=== PATIENT | female | born 1970 | race African-American/Black ===

== ENCOUNTER 2017-05-20 08:50 | Emergency (ER) | payer MEDICARE, OTHER ==
[~2017-05-20] VITALS: Ht 157.5 cm; Wt 98.5 kg
[~2017-05-20 08:50] MED LIST: CIPR500T4 PO; DOXY100T20 PO; HYDR-3498 PO; IBUP-1542 PO; METR500T PO
[2017-05-20 08:53] VITALS: Ht 157.5 cm; Wt 98.5 kg
[2017-05-20 10:03] LABS: ABNORMAL IP MESSAGE 1; BASOPHILS % 0.5 % (0.0-2.0); EOSINOPHILS # 0.3 10^3/ul (0.0-0.5); EOSINOPHILS % 4.7 % (0.0-7.0); HEMATOCRIT 28.3 % (37.0-47.0); HEMOGLOBIN 7.3 g/dl (12.0-16.0); LYMPHOCYTES # 2.1 10^3/ul (0.8-2.9); LYMPHOCYTES % 33.4 % (15.0-51.0); MEAN CORPUSCULAR HEMOGLOBIN 16.3 pg (29.0-33.0); MEAN CORPUSCULAR HGB CONC 25.8 g/dl (32.0-37.0); MEAN CORPUSCULAR VOLUME 63.3 fl (82.0-101.0); MONOCYTE # 0.7 10^3/ul (0.3-0.9); MONOCYTES % 10.6 % (0.0-11.0); NEUTROPHIL # 3.1 10^3/ul (1.6-7.5); NEUTROPHILS % 50.6 % (39.0-77.0); PLATELET COUNT 287 10^3/UL (140-415); RED BLOOD COUNT 4.47 10^6/ul (4.20-5.40); RED CELL DISTRIBUTION WIDTH 22.1 % (11.5-14.5); WHITE BLOOD COUNT 6.1 10^3/ul (4.8-10.8)
[2017-05-20 10:04] LABS: POSITIVE DIFF @See below
--- NOTE | 2017-05-20 10:07 | RADRPT ---
PROCEDURE: XR Chest. CLINICAL INDICATION: Chest pain. TECHNIQUE: Single frontal view. COMPARISON: None. FINDINGS: The lungs are clear. The heart size is normal. There is no pleural effusion. There is no pneumothorax. IMPRESSION: 1. Normal chest radiograph. RPTAT: QQ .Gavino Rodriguez MD, Date Time Electronically viewed and signed by .Gavino Rodriguez MD, on 05/20/2017 10:06 .R/
[2017-05-20 10:19] LABS: URINE BLOOD (Dip) POC Trace-intact (NEGATIVE)
[2017-05-20 10:24] LABS: ALBUMIN 3.9 g/dl (3.3-4.9); ALBUMIN/GLOBULIN RATIO 1.11; BILIRUBIN,INDIRECT 0.3 mg/dl (0-1.1); BILIRUBIN,TOTAL 0.3 mg/dl (0.2-1.3); CALCIUM 9.2 mg/dl (8.4-10.2); CREATININE 0.73 mg/dl (0.44-1.00); POTASSIUM 3.7 mmol/L (3.5-5.1); TOTAL PROTEIN 7.4 g/dl (6.1-8.1)
[2017-05-20] MEDS ORDERED: FER325 PO (10:54)
[2017-05-20] MEDS ORDERED: DOCU-144 PO (10:54)
[2017-05-20] MEDS ORDERED: FERROUS SULFATE (EC) 325 MG TAB PO ONE (11:00)
--- NOTE | 2017-05-20 12:58 | ERD ---
ER Documentation Chief Complaint Date/Time DATE: 05/20/17 TIME: 12:54 Chief Complaint FEELING TIRED, STRESS WANTS TO KNOW IF HER IRON IS LOW HPI 46-year-old female patient with a past medical history of fibroids presents to the ED complaining of feeling tired and wants her blood work tests. States that she wants to check for her possible anemia. States that she had dyspnea on exertion 2 days ago when she walked 20 steps. Denies any current chest pain. Denies any wheezing, abdominal pain, nausea, vomiting, dizziness, weakness, numbness or tingling. States that her last menses was on May. ROS All systems reviewed and are negative except as per history of present illness. Medications Home Meds Active Scripts Docusate Sodium* (Colace*) 100 Mg Capsule, 100 MG PO TID, #30 CAP Prov:MENDEZ ZAMORANO PA-C 05/20/17 Ferrous Sulfate* (Ferrous Sulfate*) 325 Mg Tabec, 325 MG PO TID, #60 TAB Prov:MENDEZ ZAMORANO PA-C 05/20/17 Metronidazole* (Flagyl*) 500 Mg Tablet, 500 MG PO TID for 7 Days, TAB Prov:VIANNEY CLEMENT MD 10/04/15 Ciprofloxacin Hcl* (Ciprofloxacin Hcl*) 500 Mg Tablet, 500 MG PO BID for 7 Days , TAB Prov:VIANNEY CLEMENT MD 10/04/15 Doxycycline Hyclate* (Doxycycline Hyclate*) 100 Mg Tablet.dr, 100 MG PO BID, # 14 TAB Prov:VIANNEY CLEMENT MD 10/04/15 Ibuprofen* (Ibuprofen*) 600 Mg Tablet, 600 MG PO Q6, #30 TAB Prov:JEANNIE MILLER PA-C 06/23/15 Hydrocodone Bit-Acetaminophen* ([place]*) 5-325 Mg Tab, 1 TAB PO Q4H Y for PAIN, # 20 TAB Prov:JEANNIE MILLER PA-C 06/23/15 Allergies Allergies: Coded Allergies: Sulfamethoxazole (Verified Allergy, Mild, SWELLING, 06/04/13) trimethoprim (Verified Allergy, Mild, SWELLING, 06/04/13) PMhx/Soc History of Surgery: Yes () Anesthesia Reaction: No Hx Neurological Disorder: No Hx Respiratory Disorders: No Hx Psychiatric Problems: No Hx Miscellaneous Medical Probl: Yes (Slipped disk 2010.) Hx Alcohol Use: Yes Hx Substance Use: Yes Hx Tobacco Use: No Smoking Status: Never smoker Physical Exam Vitals Vital Signs Date Time Temp Pulse Resp B/P Pulse Ox O2 Delivery O2 Flow Rate FiO2 05/20/17 08:53 98.6 98 18 127/85 100 Physical Exam Const: [id number], well-nourished. In no acute distress. Head: Atraumatic, normocephalic Eyes: Normal Conjunctiva without injection. No purulent discharge. PERRL. EOMI ENT: Normal external ear. Ear canal without erythema. Tympanic membrane pearly carlson without effusion or bulging. Nasal canal clear with normal turbinates. Moist oropharynx without tonsillar exudates. Non-erythematous pharynx. Uvula midline. No drooling. No trismus. Neck: Full range of motion. No meningismus. No cervical lymphadenopathy. Resp: Clear to auscultation bilaterally. No wheezing, rhonchi, rales, or crackles. No accessory muscle use. No retractions. Cardio: Regular rate and rhythm. No murmurs, rubs or gallops. Abd: Soft, non tender, non distended. Normal bowel sounds. No palpable masses. No rebound tenderness. No guarding. Skin: No petechiae or rashes Back: No midline tenderness. No CVA tenderness. Ext: No cyanosis, or edema. Neur: Awake and alert. Psych: Normal Mood and Affect Results 24 hrs Laboratory Tests Test 05/20/17 09:45 05/20/17 10:25 White Blood Count 6.110^3/ul Red Blood Count 4.4710^6/ul Hemoglobin 7.3g/dl Hematocrit 28.3% Mean Corpuscular Volume 63.3fl Mean Corpuscular Hemoglobin 16.3pg Mean Corpuscular Hemoglobin Concent 25.8g/dl Red Cell Distribution Width 22.1% Platelet Count 62052^3/UL Mean Platelet Volume fl Neutrophils % 50.6% Lymphocytes % 33.4% Monocytes % 10.6% Eosinophils % 4.7% Basophils % 0.5% Nucleated Red Blood Cells % 0.0/100WBC Neutrophils # 3.110^3/ul Lymphocytes # 2.110^3/ul Monocytes # 0.710^3/ul Eosinophils # 0.310^3/ul Basophils # 0.010^3/ul Nucleated Red Blood Cells # 0.010^3/ul Sodium Level 139mmol/L Potassium Level 3.7mmol/L Chloride Level 103mmol/L Carbon Dioxide Level 29mmol/L Anion Gap 11 Blood Urea Nitrogen 6mg/dl Creatinine 0.73mg/dl Glucose Level 95mg/dl Calcium Level 9.2mg/dl Total Bilirubin 0.3mg/dl Direct Bilirubin 0.00mg/dl Indirect Bilirubin 0.3mg/dl Aspartate Amino Transf (AST/SGOT) 24IU/L Alanine Aminotransferase (ALT/SGPT) 25IU/L Alkaline Phosphatase 62IU/L Total Protein 7.4g/dl Albumin 3.9g/dl Globulin 3.50g/dl Albumin/Globulin Ratio 1.11 Bedside Urine pH (LAB) 7.5 Bedside Urine Protein (LAB) Negative Bedside Urine Glucose (UA) Negative Bedside Urine Ketones (LAB) Negative Bedside Urine Blood Trace-intact Bedside Urine Nitrite (LAB) Negative Bedside Urine Leukocyte Esterase (L Negative Current Medications Medications (Trade) Dose Ordered Sig/Delfin Route PRN Reason Start Time Stop Time Status Last Admin Dose Admin Ferrous Sulfate (Ferrous Sulfate (Ec)) 325 mg ONCE ONCE PO 05/20/17 11:00 05/20/17 11:01 DC 05/20/17 11:36 Procedures/MDM This is a 46-year-old female patient with no significant past medical history presents to the ED complaining of feeling fatigued. Patient is afebrile and nontoxic-appearing. Patient has normal vital signs. A chest x-ray, EKG, CBC, CMP, UA, urine was ordered to further evaluate patient. CBC: No leukocytosis. No e/o of systemic infection. Hbg 7.3 Hct 28.3 MCV 63.3 MCH 16.3 CMP: No e/o severe acidosis, alkalosis, renal failure, diabetic ketoacidosis, liver disease Lipase within normal limits. Urine: No leukocyte esterase, no nitrites, trace hematuria. EKG reviewed and interpreted by Dr. Carlos Rate/Rhythm: [72 bpm. Normal Sinus Rhythm] No ectopy, no ST elevations, normal axis. QRS, ST, T-waves: [No changes consistent w/ acute ischemia] Impression: [No evidence of ischemia or arrhythmia] Patient likely has microcytic anemia and patient will be treated with a dose of Ferrous Sulfate 325 mg here in the ED. Low suspicion for symptomatic anemia. Low suspicion for acute myocardial infarction, pneumothorax, pneumonia, cardiac tamponade, pulmonary embolism, AAA, aortic dissection, Boerhaave's syndrome, cardiac dysrhythmias,meningitis, intracranial bleed, seizure, stroke, TIA or other emergent conditions. This case was discussed with my supervising physician, Dr. Bhatia who agreed with the management and discharge plan. Discharge medications: Colace, Ferrous Sulfate Follow up with primary care physician in 1-2 days. Instructed patient to return to the ED sooner for any worsening symptoms. Patient's questions were answered. Patient understood and agreed with discharge plan. Patient discharged stable. Departure Diagnosis: Primary Impression: Encounter for laboratory test Condition: Stable Patient Instructions: Anemia, Type Not Specified (Adult) Referrals: [facility] YOU HAVE RECEIVED A MEDICAL SCREENING EXAM AND THE RESULTS INDICATE THAT YOU DO NOT HAVE A CONDITION THAT REQUIRES URGENT TREATMENT IN THE EMERGENCY DEPARTMENT. FURTHER EVALUATION AND TREATMENT OF YOUR CONDITION CAN WAIT UNTIL YOU ARE SEEN IN YOUR DOCTORS OFFICE WITHIN THE NEXT 1-2 DAYS. IT IS YOUR RESPONSIBILITY TO MAKE AN APPOINTMENT FOR FOLOW-UP CARE. IF YOU HAVE A PRIMARY DOCTOR --you should call your primary doctor and schedule an appointment IF YOU DO NOT HAVE A PRIMARY DOCTOR YOU CAN CALL OUR PHYSICIAN REFERRAL HOTLINE AT IF YOU CAN NOT AFFORD TO SEE A PHYSICIAN YOU CAN CHOSE FROM THE FOLLOWING [facility] [address] [facility]. [facility] [address] [facility] [facility] [address] [facility] [address] [address] [facility]. [facility] [facility]. [facility] YOU HAVE RECEIVED A MEDICAL SCREENING EXAM AND THE RESULTS INDICATE THAT YOU DO NOT HAVE A CONDITION THAT REQUIRES URGENT TREATMENT IN THE EMERGENCY DEPARTMENT. FURTHER EVALUATION AND TREATMENT OF YOUR CONDITION CAN WAIT UNTIL YOU ARE SEEN IN YOUR DOCTORS OFFICE WITHIN THE NEXT 1-2 DAYS. IT IS YOUR RESPONSIBILITY TO MAKE AN APPOINTMENT FOR FOLOW-UP CARE. IF YOU HAVE A PRIMARY DOCTOR --you should call your primary doctor and schedule and appointment IF YOU DO NOT HAVE A PRIMARY DOCTOR YOU CAN CALL OUR PHYSICIAN REFERRAL HOTLINE AT . IF YOU CAN NOT AFFORD TO SEE A PHYSICIAN YOU CAN CHOSE FROM THE FOLLOWING [facility] INSTITUTIONS: [facility] [address] [place] [address] [facility] [address] [place] [address] [facility] + [facility] [address] [place] [address] [facility] URGENT CARE/SPECIALTIES Additional Instructions: Call your primary care doctor TOMORROW for an appointment during the next 1-2 days.See the doctor sooner or return here if your condition worsens before your appointment time. MENDEZ ZAMORANO PA-C May 20, 2017 12:58 MENDEZ ZAMORANO PA-C May 20, 2017 12:58
== END 2017-05-20 11:45 | disposition home or self-care (01) ==
LOC: FTE 08:50
DX: R06.00 Dyspnea, unspecified (principal); R07.9 Chest pain, unspecified
CPT/HCPCS: 36415; 71010; 80053; 81003; 85025; 93005

== ENCOUNTER 2018-05-23 14:47 | Emergency (ER) | END 2018-05-23 19:59 | disposition home or self-care (01) ==

== ENCOUNTER 2018-09-01 07:44 | Emergency (ER) | payer SELFPAY ==
[~2018-09-01] VITALS: Ht 167.6 cm; Wt 97.6 kg
[~2018-09-01 07:44] MED LIST changes: +DOCU-144 PO; +FER325 PO; +TRAM50TA2 PO
[2018-09-01 07:51] VITALS: BP 159/73; PULSE 83; RESP 20; Ht 167.6 cm; Wt 97.6 kg
--- NOTE | 2018-09-01 08:37 | ERD ---
ER Documentation Chief Complaint Chief Complaint Complains of vag bleed x 3 weeks Hx of fibroids HPI 47-year-old female with history of fibroids presents with history of vaginal bleeding for past 2 weeks. Patient states that her LMP started normally but now has extended beyond its normal course. Patient going through 3 pads a day. Patient just started taking Depo shots every 3 months. In addition patient complains of dysuria, polyuria, complete voiding. Patient denies, chills, pelvic or abdominal pain, lightheadedness, tachycardia, chest pain, vaginal discharge. Patient did have concern of possible STD and wanted to be tested. Taking iron and Depo shots. Allergic to Bactrim. History of . No smoking, drinking, drug use. ROS All systems reviewed and are negative except as per history of present illness. Medications Home Meds Active Scripts Metronidazole* (Flagyl*) 500 Mg Tablet, 500 MG PO BID for 7 Days, #14 TAB 0 Refills Prov:MONO KAMARA 09/01/18 Tramadol HCl (Tramadol HCl) 50 Mg Tablet, 50 MG PO Q6 PRN for PAIN, #10 TAB Prov:CECI MOTTA MD 05/23/18 Docusate Sodium* (Colace*) 100 Mg Capsule, 100 MG PO TID, #30 CAP Prov:MENDEZ ZAMORANO PA-C 05/20/17 Ferrous Sulfate* (Ferrous Sulfate*) 325 Mg Tabec, 325 MG PO TID, #60 TAB Prov:MENDEZ ZAMORANO PA-C 05/20/17 Metronidazole* (Flagyl*) 500 Mg Tablet, 500 MG PO TID for 7 Days, TAB Prov:VIANNEY CLEMENT MD 10/04/15 Ciprofloxacin Hcl* (Ciprofloxacin Hcl*) 500 Mg Tablet, 500 MG PO BID for 7 Days, TAB Prov:VIANNEY CLEMENT MD 10/04/15 Doxycycline Hyclate* (Doxycycline Hyclate*) 100 Mg Tablet.dr, 100 MG PO BID, #14 TAB Prov:VIANNEY CLEMENT MD 10/04/15 Ibuprofen* (Ibuprofen*) 600 Mg Tablet, 600 MG PO Q6, #30 TAB Prov:JEANNIE MILLER PA-C 06/23/15 Hydrocodone Bit-Acetaminophen* ([place]*) 5-325 Mg Tab, 1 TAB PO Q4H PRN for PAIN, #20 TAB Prov:JEANNIE MILLER PA-C 06/23/15 Allergies Allergies: Coded Allergies: sulfamethoxazole (Verified Allergy, Mild, SWELLING, 06/04/13) trimethoprim (Verified Allergy, Mild, SWELLING, 06/04/13) PMhx/Soc History of Surgery: Yes () Anesthesia Reaction: No Hx Neurological Disorder: No Hx Respiratory Disorders: No Hx Psychiatric Problems: No Hx Miscellaneous Medical Probl: Yes (Slipped disk 2011., fibroid) Hx Alcohol Use: Yes Hx Substance Use: Yes Hx Tobacco Use: No FmHx Family History: No diabetes, No coronary disease, No other Physical Exam Vitals Vital Signs Date Temp Pulse Resp B/P (MAP) Pulse Ox O2 O2 Flow FiO2 Time Delivery Rate 09/01/18 97.0 83 20 159/73 100 07:51 (101) Physical Exam General: Well developed, will nourished. No acute distress. Heart: RR w/o murmur, rubs, or gallops. Lungs: Clear to auscultation bilaterally w/o wheezes, crackles, rhonchi. Symmetric rise and fall. Equal breath sounds. Abdomen: Soft, nontender, with no rigidity or guarding noted. No masses, lesions, or ecchymoses. Normoactive bowel sounds. No McBurney's point tenderness. Patient ambulatory. No tenderness to palpation in splenic area or splenomegaly. No CVA tenderness. Mild suprapubic tenderness. Psych: Normal mood and affect. Result Diagram: 09/01/18 0832 Results 24 hrs Laboratory Tests Test 09/01/18 08:32 09/01/18 08:33 09/01/18 08:39 White Blood Count 5.1 10^3/ul Red Blood Count 4.08 10^6/ul Hemoglobin 8.1 g/dl Hematocrit 29.9 % Mean Corpuscular Volume 73.3 fl Mean Corpuscular Hemoglobin 19.9 pg Mean Corpuscular 27.1 g/dl Hemoglobin Concent Red Cell Distribution Width 27.0 % Platelet Count 234 10^3/UL Mean Platelet Volume fl Immature Granulocytes % 0.400 % Neutrophils % 54.9 % Lymphocytes % 33.5 % Monocytes % 5.9 % Eosinophils % 4.7 % Basophils % 0.6 % Nucleated Red Blood Cells % 0.0 /100WBC Immature Granulocytes # 0.020 10^3/ul Neutrophils # 2.8 10^3/ul Lymphocytes # 1.7 10^3/ul Monocytes # 0.3 10^3/ul Eosinophils # 0.2 10^3/ul Basophils # 0.0 10^3/ul Nucleated Red Blood Cells # 0.0 10^3/ul Urine Color RED Urine Clarity CLOUDY Urine pH 6.0 Urine Specific [place] 1.027 Urine Ketones NEGATIVE mg/dL Urine Nitrite NEGATIVE mg/dL Urine Bilirubin NEGATIVE mg/dL Urine Urobilinogen NEGATIVE mg/dL Urine Leukocyte Esterase TRACE [place]/ul Urine Microscopic RBC > 182 /HPF Urine Microscopic WBC 6 /HPF Urine Bacteria FEW /HPF Urine Mucus FEW /HPF Urine Hemoglobin 3+ mg/dL Urine Glucose NEGATIVE mg/dL Urine Total Protein 2+ mg/dl POC Beta HCG, Qualitative NEGATIVE Current Medications Medications Dose Sig/Delfin Start Time Status Last (Trade) Ordered Route PRN Stop Time Admin Dose Reason Admin Ceftriaxone 250 mg ONCE ONCE 09/01/18 DC 09/01/18 Sodium IM 10:30 10:37 (Rocephin) 09/01/18 10:31 Lidocaine 5 ml ONCE ONCE 09/01/18 DC 09/01/18 (Xylocaine INJ 10:30 10:37 1% (Mpf)) 09/01/18 10:31 1,000 mg ONCE ONCE 09/01/18 DC 09/01/18 Azithromycin PO 10:30 10:37 (Zithromax) 09/01/18 10:31 Procedures/MDM ER Course: HCG, UA, G/C, CBC performed. Ceftriaxone and azithromyacin administered. Pelvic exam performed, no pooling of blood seen. MDM: 47-year-old female with history of fibroids presents with history of vaginal bleeding for past 2 weeks. Patient states that her LMP started normally but now has extended beyond its normal course. Patient going through 3 pads a day. Patient just started taking Depo shots every 3 months. In addition patient complains of dysuria, polyuria, complete voiding. Low suspicion for cervical cancer, bladder cancer, based on patient's history and exam. Most likely etiology of her menorrhagia fibroids versus side effects of Depo vs premenopause. Pelvic exam was performed due to CBC showing anemia and complaint of menorrhagia, only scant blood seen. I have low suspicition for symptomatic anemia or shock. During exam, fishy odor was detected so vaginosis may be likely. Metronidazole prescribed. Due to patients concern of possible STD, G/C was sent out and azithromycin and ceftriaxone given prophylactically. Patient mentioned that she has not been taking her iron supplement regularly so I told her she needs to start taking it consistently in light of her anemia. Patient discharged with strict ER precautions. Patient advised [facility] All questions answered at discharge. Departure Diagnosis: Primary Impression: Vaginal bleeding Additional Impressions: Bacterial vaginosis Screen for STD (sexually transmitted disease) Anemia Anemia type: unspecified type Qualified Codes: D64.9 - Anemia, unspecified Condition: Stable MONO KAMARA Sep 01, 2018 08:37
[2018-09-01] MEDS ORDERED: LIDOCAINE 1% (MPF) 5 ML VIAL INJ ONE (10:30)
[2018-09-01] MEDS ORDERED: CEFTRIAXONE 250 MG INJ IM ONE (10:30)
[2018-09-01] MEDS ORDERED: AZITHROMYCIN 250 MG TAB PO ONE (10:30)
[2018-09-01] MEDS ORDERED: METR500T PO (10:33)
== END 2018-09-01 11:08 | disposition home or self-care (01) ==
LOC: FTE 07:44
DX: N93.9 Abnormal uterine and vaginal bleeding, unspecified (principal); N76.0 Acute vaginitis; D64.9 Anemia, unspecified; Z11.3 Encounter for screening for infections with a predominantly sexual mode of transmission
CPT/HCPCS: 81001; 81025; 85025; 87591; 96372; 99284; J0696